=== PATIENT | female | born 1985 | race Two or more races ===

== ENCOUNTER 2017-12-14 17:53 | Emergency (ER) | payer MEDICAID ==
[~2017-12-14] VITALS: Ht 147.3 cm; Wt 66.7 kg
[2017-12-14 17:53] VITALS: BP 148/95
== END 2017-12-14 19:38 | disposition home or self-care (01) ==
LOC: ER 17:59
DX: R51 Headache (principal); H66.92 Otitis media, unspecified, left ear
CPT/HCPCS: 99282; A4606; Z7610